=== PATIENT | male | born 1985 | race American Indian/Alaskan Native ===

== ENCOUNTER 2017-07-14 19:54 | Emergency (ER) | payer MEDICAID ==
[~2017-07-14] VITALS: Ht 172.7 cm; Wt 90.9 kg
[~2017-07-14 19:54] MED LIST: NAPR-1144 PO
[2017-07-14] MEDS ORDERED: PRED5TAB PO (20:09)
[2017-07-14] MEDS ORDERED: dexamethasone 4mg tablet PO ONE (20:25)
[2017-07-14] MEDS ORDERED: ipratropium/albuterol 3ml nebule NEB ONE (20:35)
[2017-07-14 21:01] VITALS: BP 125/62
== END 2017-07-14 21:05 | disposition home or self-care (01) ==
LOC: ER 19:54
DX: J45.901 Unspecified asthma with (acute) exacerbation (principal); F12.10 Cannabis abuse, uncomplicated; Z88.0 Allergy status to penicillin; Z79.899 Other long term (current) drug therapy
CPT/HCPCS: 93005; 94640; 94760; 99283; J8540

== ENCOUNTER 2023-05-05 10:13 | Emergency (ER) | payer MEDICAID ==
[~2023-05-05] VITALS: Ht 172.7 cm; Wt 101.0 kg
[~2023-05-05 10:13] MED LIST changes: +CYCL-1 PO; +IBUP-1986 PO; +ONDA8TAB9 PO; +PRED5TAB PO
[2023-05-05 10:55] VITALS: TEMP 98.2
[2023-05-05 11:38] LABS: BASOPHILS # (AUTO) 0.1 X10'3 (0-0.2); BASOPHILS % (AUTO) 0.8 % (0-1); EOSINOPHILS % (AUTO) 0.2 % (0-6); HEMATOCRIT 41.4 % (42.0-52.0); HEMOGLOBIN 13.2 g/dl (14.0-17.9); LYMPHOCYTES # (AUTO) 1.4 X10'3 (1.1-4.8); LYMPHOCYTES % (AUTO) 12.2 % (21-51); MEAN CORPUSCULAR HEMOGLOBIN 24.2 PG (27.0-31.0); MEAN CORPUSCULAR HGB CONC 31.8 g/dL (33.0-36.5); MEAN CORPUSCULAR VOLUME 75.9 FL (78-98); MEAN PLATELET VOLUME 7.7 FL (7.4-10.4); MONOCYTES % (AUTO) 8.8 % (2-12); PLATELET COUNT 452 X10'3 (140-440); RED BLOOD COUNT 5.45 X10'6 (4.70-6.10); RED CELL DISTRIBUTION WIDTH 15.5 % (11.5-14.5); WHITE BLOOD COUNT 11.5 X10'3 (4.5-11.0)
[2023-05-05 11:52] LABS: ALANINE AMINOTRANSFERASE 36 U/L (12-78); ALBUMIN 2.7 G/DL (3.4-5.0); ALBUMIN/GLOBULIN RATIO 0.6 (1.1-1.5); ALKALINE PHOSPHATASE 109 IU/L (46-116); ANION GAP 8 (8-16); ASPARTATE AMINO TRANSFERASE 52 U/L (10-37); BILIRUBIN,TOTAL 1.4 MG/DL (0.1-1.0); BLOOD UREA NITROGEN 17 MG/DL (7-18); BUN/CREATININE RATIO 15.5 (10.0-20.0); CALCIUM 8.5 MG/DL (8.5-10.1); CHLORIDE 106 MMOL/L (99-107); GLUCOSE 185 MG/DL (70-104); POTASSIUM 3.7 MMOL/L (3.5-5.1); SODIUM 140 MMOL/L (135-145); TOTAL CARBON DIOXIDE 25.9 MMOL/L (24-32); TOTAL PROTEIN 7.6 G/DL (6.4-8.2); eCRCL 88 ML/MIN; eGFR 75 ML/MIN
[2023-05-05 11:56] LABS: D-DIMER 3.34 MG/L FEU (0-0.50)
[2023-05-05 12:02] LABS: PRO BRAIN NATRIURETIC PEPTIDE 8769 PG/ML (0-125)
[2023-05-05] MEDS ORDERED: iohexol 350MG/ML 100ml bottle IV ONE (12:39)
[2023-05-05] MEDS ORDERED: potassium Cl 20 mEq SR tablet PO STA (13:42)
[2023-05-05] MEDS ORDERED: furosemide 10 MG/1 ML 10ml inj IV ONE (13:45)
[2023-05-05 14:01] VITALS: BP 168/118; PULSE 124; RESP 23; O2SAT 99
[2023-05-05 14:04] LABS: URINE AMPHETAMINE SCREEN POSITIVE (Neg); URINE BARBITUATE SCREEN NEGATIVE (Neg); URINE BENZODIAZEPINES SCREEN NEGATIVE (Neg); URINE CANNABINOID SCREEN POSITIVE (Neg); URINE COCAINE SCREEN NEGATIVE (Neg); URINE METHADONE SCREEN NEGATIVE (Neg); URINE OPIATE SCREEN NEGATIVE (Neg); URINE PHENCYCLIDINE SCREEN NEGATIVE (Neg)
[2023-05-06] MEDS ORDERED: MESSAGE TO NURSING PO NR (10:00)
== END 2023-05-05 14:12 | disposition left against medical advice (07) ==
LOC: ER 10:13
DX: J45.901 Unspecified asthma with (acute) exacerbation (principal); I50.9 Heart failure, unspecified; R60.0 Localized edema
CPT/HCPCS: 36415; 71045; 71275; 80053; 80305; 83880; 84145; 84484; 85025; 85379; 93005; 99285; J3490; Q9967

== ENCOUNTER 2023-10-27 11:33 | Inpatient (IN) | payer MEDICAID ==
[~2023-10-27] VITALS: Ht 172.7 cm; Wt 84.5 kg
[2023-10-27 12:15] LABS: BASOPHILS # (AUTO) 0.1 X10'3 (0-0.2); BASOPHILS % (AUTO) 0.4 % (0-1); EOSINOPHILS # (AUTO) 0.2 X10'3 (0-0.9); EOSINOPHILS % (AUTO) 0.9 % (0-6); HEMOGLOBIN 9.7 g/dl (14.0-17.9); LYMPHOCYTES % (AUTO) 6.3 % (21-51); MEAN CORPUSCULAR HEMOGLOBIN 24.9 PG (27.0-31.0); MEAN CORPUSCULAR HGB CONC 31.2 g/dL (33.0-36.5); MEAN CORPUSCULAR VOLUME 79.6 FL (78-98); MEAN PLATELET VOLUME 6.8 FL (7.4-10.4); MONOCYTES # (AUTO) 1.3 X10'3 (0-0.9); MONOCYTES % (AUTO) 8.2 % (2-12); NEUTROPHILS # (AUTO) 13.6 X10'3 (1.8-7.7); NEUTROPHILS % (AUTO) 84.2 % (42-75); PLATELET COUNT 284 X10'3 (140-440); RED BLOOD COUNT 3.89 X10'6 (4.70-6.10); RED CELL DISTRIBUTION WIDTH 19.8 % (11.5-14.5); WHITE BLOOD COUNT 16.2 X10'3 (4.5-11.0)
[2023-10-27] MEDS: LidoCAINE 2% Topical Jelly 11mL syringe (UROJET) TOP ONE (12:21)
[2023-10-27 12:36] LABS: ALANINE AMINOTRANSFERASE 8 U/L (12-78); ALBUMIN 2.5 G/DL (3.4-5.0); ALBUMIN/GLOBULIN RATIO 0.5 (1.1-1.5); ALKALINE PHOSPHATASE 150 IU/L (46-116); ANION GAP 7 (8-16); ASPARTATE AMINO TRANSFERASE 22 U/L (10-37); BILIRUBIN,TOTAL 0.9 MG/DL (0.1-1.0); BLOOD UREA NITROGEN 44 MG/DL (7-18); BUN/CREATININE RATIO 26.2 (10.0-20.0); CALCIUM 8.5 MG/DL (8.5-10.1); CHLORIDE 101 MMOL/L (99-107); CREATININE 1.68 MG/DL (0.60-1.10); GLUCOSE 218 MG/DL (70-104); POTASSIUM 4.4 MMOL/L (3.5-5.1); SODIUM 138 MMOL/L (135-145); TOTAL CARBON DIOXIDE 29.8 MMOL/L (24-32); TOTAL PROTEIN 7.9 G/DL (6.4-8.2); eCRCL 54 ML/MIN; eGFR 46 ML/MIN
[2023-10-27] MEDS: CefTRIAXone 2gm/D5W 50ml BAG 50 ML IV ONE (12:42)
[2023-10-27] MEDS: normal saline 1000ML IV soln IVB ONE (12:42)
[2023-10-27] MEDS: acetaminophen 325mg tablet PO ONE (12:44)
[2023-10-27 12:47] VITALS: PULSE 125; RESP 36; O2SAT 97
[2023-10-27 12:50] LABS: CLARITY,URINE CLOUDY (Clear); COLOR,URINE RED (Yellow)
[2023-10-27 12:56] LABS: PRO BRAIN NATRIURETIC PEPTIDE > 30000 PG/ML (0-125)
[2023-10-27 12:58] LABS: UA COLLECTION TYPE FOLEY CATH
[2023-10-27 12:59] LABS: BACTERIA,URINE FEW /HPF (Neg); RBC,URINE TNTC /HPF (0-2); SQUAMOUS EPITHELIAL CELL,UR NONE SEEN /LPF (FEW)
[2023-10-27 13:02] LABS: ANISOCYTOSIS 2+; MICROCYTOSIS 1+; PLATELET ESTIMATE NORMAL
[2023-10-27 13:03] LABS: STOMATOCYTES FEW; TEAR DROP CELLS FEW
[2023-10-27 13:04] LABS: INR 1.3 INR; PROTHROMBIN TIME 13.8 SECONDS (9.0-12.0)
[2023-10-27] MEDS: vancomycin/NS 1 GM ADD-VANTAGE 250 ML X 1 DOSE IV ONE (13:07)
[2023-10-27] MEDS: ondansetron/PF 4mg/2ml inj IV ONE (13:20)
[2023-10-27 13:37] VITALS: PULSE 124; RESP 31; O2SAT 98
[2023-10-27 13:42] LABS: ABG OXYGEN SATURATION 98.6 % (94-97); ABG PCO2 (T) 43.4 mmHg (35.0-48.0); ABG PH (T) 7.436 (7.340-7.440); ABG PO2 (T) 132.4 mmHg (75.0-100.0); ALLEN'S TEST POSITIVE; FHHb 1.4 % (0.0-5.0); FMetHb 0.3 % (0.0-1.5); FO2Hb 98.3 % (94-97); MODE MASK - BIPAP; PATIENT TEMPERATURE 39.2; PEEP 5 cm H2O; RESPIRATORY RATE 10 b/min; TOTAL HEMOGLOBIN 9.8 G/dl (14.0-17.9)
[2023-10-27] MEDS: cloNIDine 0.1 mg tablet PO ONE (14:35)
[2023-10-27] MEDS: nitroGLYCERIN 0.4mg/hour patch TD ONE (14:52)
[2023-10-27] MEDS ORDERED: DEXTROSE 15 GM of carb/4 tabs (each vial/BOTTLE has 4 tablets) PO PRN (15:35)
[2023-10-27] MEDS ORDERED: glucagon, human recombinant 1mg kit SUBCUT PRN (15:35)
[2023-10-27] MEDS ORDERED: dextrose 50%-water 50ml dispensing syringe IV PRN ×2 (15:35)
[2023-10-27] MEDS ORDERED: potassium Cl 40MEQ/1/2NS 520ml 520 ML IV PRN (15:40)
[2023-10-27] MEDS ORDERED: magnesium Cl slow-release 64mg tablet PO PRN (15:40)
[2023-10-27] MEDS ORDERED: potassium Cl 20 mEq SR tablet PO PRN ×2 (15:40)
[2023-10-27] MEDS ORDERED: ondansetron/PF 4mg/2ml inj IV PRN (15:40)
[2023-10-27] MEDS ORDERED: magnesium sulf-water 2g/50mL 50 ML IV PRN (15:40)
[2023-10-27] MEDS ORDERED: magnesium sulf-water 4G/100mL 100 ML IV PRN (15:40)
[2023-10-27] MEDS ORDERED: acetaminophen 325mg tablet PO PRN (15:40)
[2023-10-27] MEDS ORDERED: albuterol 2.5 MG/3 ML nebule NEB PRN (15:45)
[2023-10-27] MEDS ORDERED: Potassium Cl inj 20 MEQ in normal saline 1000ml 990 ML IV SCH (15:45)
[2023-10-27] MEDS: furosemide 20 MG/2 ML vial IV ONE (16:33)
[2023-10-27] MEDS: potassium Cl 20mEq in NS 1,000 ML IV SCH (16:53)
[2023-10-27] MEDS: INSULIN LISPRO 100 UNIT/ML INSULN.PEN MULTI-DOSE SQ SCH (17:00)
[2023-10-27] MEDS: DEXTROSE 15 GM of carb/4 tabs (each vial/BOTTLE has 4 tablets) PO PRN (17:30)
[2023-10-27 18:44] VITALS: PULSE 102; RESP 20
[2023-10-27] MEDS: furosemide 20 MG/2 ML vial IV SCH (20:38)
[2023-10-27] MEDS ORDERED: EMPA10TA (21:33)
[2023-10-27] MEDS ORDERED: ESCI-8 PO (21:33)
[2023-10-27] MEDS ORDERED: SACU1TAB PO (21:33)
[2023-10-27] MEDS ORDERED: ARIP5TAB31 (21:33)
[2023-10-27] MEDS ORDERED: LEVO25TA7 (21:33)
[2023-10-27] MEDS ORDERED: SPIR25TA5 (21:33)
[2023-10-27] MEDS ORDERED: GABA-530 PO (21:33)
[2023-10-27] MEDS ORDERED: LEVO750T68 PO (21:33)
[2023-10-27] MEDS ORDERED: CARV3.122 PO (21:33)
[2023-10-27] MEDS ORDERED: BUME1TAB8 PO (21:33)
[2023-10-27 22:15] VITALS: BP 158/89; PULSE 115; RESP 22; TEMP 98.4; O2SAT 92
[2023-10-27] MEDS: acetaminophen 325mg tablet PO PRN (22:40)
[2023-10-28] VITALS (10 sets, daily range): BP systolic 118–138; BP diastolic 68–87; PULSE 92–117; RESP 16–23; TEMP 97.9–98.9; O2SAT 95–98
[2023-10-28 06:08] LABS: BASOPHILS # (AUTO) 0.1 X10'3 (0-0.2); BASOPHILS % (AUTO) 0.5 % (0-1); EOSINOPHILS # (AUTO) 0.5 X10'3 (0-0.9); EOSINOPHILS % (AUTO) 4.2 % (0-6); HEMATOCRIT 27.3 % (42.0-52.0); HEMOGLOBIN 8.5 g/dl (14.0-17.9); LYMPHOCYTES # (AUTO) 1.1 X10'3 (1.1-4.8); LYMPHOCYTES % (AUTO) 9.5 % (21-51); MEAN CORPUSCULAR HEMOGLOBIN 24.9 PG (27.0-31.0); MEAN CORPUSCULAR VOLUME 80.3 FL (78-98); MEAN PLATELET VOLUME 6.7 FL (7.4-10.4); MONOCYTES # (AUTO) 1.3 X10'3 (0-0.9); MONOCYTES % (AUTO) 11.1 % (2-12); NEUTROPHILS # (AUTO) 8.6 X10'3 (1.8-7.7); NEUTROPHILS % (AUTO) 74.7 % (42-75); PLATELET COUNT 216 X10'3 (140-440); RED CELL DISTRIBUTION WIDTH 19.7 % (11.5-14.5); WHITE BLOOD COUNT 11.5 X10'3 (4.5-11.0)
[2023-10-28 06:25] LABS: ALANINE AMINOTRANSFERASE 9 U/L (12-78); ALBUMIN 2.2 G/DL (3.4-5.0); ALBUMIN/GLOBULIN RATIO 0.4 (1.1-1.5); ALKALINE PHOSPHATASE 123 IU/L (46-116); ANION GAP 5 (8-16); ASPARTATE AMINO TRANSFERASE 20 U/L (10-37); BILIRUBIN,TOTAL 0.9 MG/DL (0.1-1.0); BLOOD UREA NITROGEN 47 MG/DL (7-18); CALCIUM 8.4 MG/DL (8.5-10.1); CHLORIDE 105 MMOL/L (99-107); CREATININE 1.74 MG/DL (0.60-1.10); GLUCOSE 92 MG/DL (70-104); POTASSIUM 4.5 MMOL/L (3.5-5.1); SODIUM 142 MMOL/L (135-145); TOTAL CARBON DIOXIDE 32.4 MMOL/L (24-32); TOTAL PROTEIN 7.1 G/DL (6.4-8.2); eCRCL 56 ML/MIN; eGFR 44 ML/MIN
[2023-10-28] MEDS: levoFLOXACIN-Levaquin 500mg/D5 100 ML IV SCH (09:11)
[2023-10-28] MEDS: spironolactone 25 MG tablet PO SCH (12:05)
[2023-10-28] MEDS: carVEDilol 3.125mg tablet PO SCH (20:16)
[2023-10-28] MEDS: nicotine 21mg patch - 24 hr TD SCH (20:21)
[2023-10-28] MEDS: sacubitril/valsartan 24mg-26mg tablet PO SCH (20:26)
[2023-10-29] VITALS (10 sets, daily range): BP systolic 115–142; BP diastolic 71–96; PULSE 95–106; RESP 16–30; TEMP 97.2–98.9; O2SAT 90–99
[2023-10-29 05:40] LABS: BASOPHILS # (AUTO) 0.1 X10'3 (0-0.2); BASOPHILS % (AUTO) 0.5 % (0-1); EOSINOPHILS # (AUTO) 0.5 X10'3 (0-0.9); EOSINOPHILS % (AUTO) 4.4 % (0-6); HEMATOCRIT 27.2 % (42.0-52.0); HEMOGLOBIN 8.5 g/dl (14.0-17.9); LYMPHOCYTES % (AUTO) 8.1 % (21-51); MEAN CORPUSCULAR HGB CONC 31.3 g/dL (33.0-36.5); MEAN CORPUSCULAR VOLUME 79.9 FL (78-98); MONOCYTES # (AUTO) 1.5 X10'3 (0-0.9); MONOCYTES % (AUTO) 12.4 % (2-12); NEUTROPHILS # (AUTO) 8.7 X10'3 (1.8-7.7); NEUTROPHILS % (AUTO) 74.6 % (42-75); PLATELET COUNT 212 X10'3 (140-440); WHITE BLOOD COUNT 11.7 X10'3 (4.5-11.0)
[2023-10-29 06:01] LABS: ALANINE AMINOTRANSFERASE 10 U/L (12-78); ALBUMIN 2.2 G/DL (3.4-5.0); ALBUMIN/GLOBULIN RATIO 0.5 (1.1-1.5); ALKALINE PHOSPHATASE 162 IU/L (46-116); ANION GAP 4 (8-16); ASPARTATE AMINO TRANSFERASE 23 U/L (10-37); BILIRUBIN,TOTAL 0.7 MG/DL (0.1-1.0); BLOOD UREA NITROGEN 52 MG/DL (7-18); BUN/CREATININE RATIO 26.7 (10.0-20.0); CALCIUM 8.1 MG/DL (8.5-10.1); CHLORIDE 103 MMOL/L (99-107); CREATININE 1.95 MG/DL (0.60-1.10); GLUCOSE 135 MG/DL (70-104); POTASSIUM 4.4 MMOL/L (3.5-5.1); SODIUM 139 MMOL/L (135-145); TOTAL CARBON DIOXIDE 32.5 MMOL/L (24-32); eCRCL 50 ML/MIN; eGFR 39 ML/MIN
[2023-10-29 06:40] LABS: HEMOGLOBIN A1C 5.5 % (4.5-6.2)
[2023-10-29] MEDS: EMPAGLIFLOZIN 10 MG TABLET PO SCH (08:00)
[2023-10-29] MEDS: ESCITALOPRAM 10 mg tablet 10 MG TABLET PO SCH (09:29)
[2023-10-29] MEDS: levoTHYROXINE 25mcg tablet PO SCH (09:29)
[2023-10-29] MEDS ORDERED: FURO20TA4 PO (11:59)
[2023-10-29] MEDS ORDERED: NICO-687 TD (11:59)
[2023-10-30] VITALS (10 sets, daily range): BP systolic 115–143; BP diastolic 81–94; PULSE 71–101; RESP 16–26; TEMP 97.3–98.2; O2SAT 92–99
[2023-10-30 07:48] LABS: BASOPHILS % (AUTO) 0.4 % (0-1); EOSINOPHILS # (AUTO) 0.6 X10'3 (0-0.9); EOSINOPHILS % (AUTO) 5.9 % (0-6); HEMATOCRIT 28.5 % (42.0-52.0); LYMPHOCYTES # (AUTO) 0.9 X10'3 (1.1-4.8); LYMPHOCYTES % (AUTO) 8.9 % (21-51); MEAN CORPUSCULAR HEMOGLOBIN 25.1 PG (27.0-31.0); MEAN CORPUSCULAR HGB CONC 31.6 g/dL (33.0-36.5); MEAN CORPUSCULAR VOLUME 79.6 FL (78-98); MONOCYTES # (AUTO) 1.3 X10'3 (0-0.9); MONOCYTES % (AUTO) 12.8 % (2-12); NEUTROPHILS # (AUTO) 7.6 X10'3 (1.8-7.7); PLATELET COUNT 269 X10'3 (140-440); RED BLOOD COUNT 3.59 X10'6 (4.70-6.10); RED CELL DISTRIBUTION WIDTH 19.2 % (11.5-14.5); WHITE BLOOD COUNT 10.5 X10'3 (4.5-11.0)
[2023-10-30 07:59] LABS: ALANINE AMINOTRANSFERASE 10 U/L (12-78); ALBUMIN 2.2 G/DL (3.4-5.0); ALBUMIN/GLOBULIN RATIO 0.5 (1.1-1.5); ALKALINE PHOSPHATASE 128 IU/L (46-116); ANION GAP 3 (8-16); ASPARTATE AMINO TRANSFERASE 18 U/L (10-37); BILIRUBIN,TOTAL 0.7 MG/DL (0.1-1.0); BLOOD UREA NITROGEN 52 MG/DL (7-18); BUN/CREATININE RATIO 30.1 (10.0-20.0); CALCIUM 8.3 MG/DL (8.5-10.1); CHLORIDE 104 MMOL/L (99-107); CREATININE 1.73 MG/DL (0.60-1.10); GLUCOSE 93 MG/DL (70-104); POTASSIUM 4.2 MMOL/L (3.5-5.1); SODIUM 141 MMOL/L (135-145); TOTAL CARBON DIOXIDE 34.2 MMOL/L (24-32); TOTAL PROTEIN 6.9 G/DL (6.4-8.2); eCRCL 56 ML/MIN; eGFR 44 ML/MIN
[2023-10-30] MEDS: Melatonin 3mg tablet PO SCH (20:35)
[2023-10-30] MEDS: ibuprofen tablet 400 MG TABLET PO PRN (21:24)
[2023-10-31 02:00] VITALS: BP 131/74; PULSE 95; RESP 22; TEMP 98.1; O2SAT 95
[2023-10-31 06:00] VITALS: BP 129/95; PULSE 88; RESP 16; TEMP 97.1
[2023-10-31 08:00] VITALS: RESP 31
[2023-10-31 11:20] VITALS: PULSE 91; RESP 20; O2SAT 95
[2023-10-31 15:00] VITALS: BP 125/94; PULSE 93; RESP 33; TEMP 98.1; O2SAT 95
== END 2023-10-31 17:06 | disposition home or self-care (01) | DRG 720 ==
LOC: ER 11:33 → ED HOLD 15:43 → PCU 3S 22:11
PROVIDERS: ADMIT Internal Medicine; ATTEND Internal Medicine
PROC: 5A09357 Assistance with Respiratory Ventilation, Less than 24 Consecutive Hours, Continuous Positive Airway Pressure (ICD-10-PCS; principal; 2023-10-27)
DX: A41.9 Sepsis, unspecified organism (principal); J96.00 Acute respiratory failure, unspecified whether with hypoxia or hypercapnia; K72.90 Hepatic failure, unspecified without coma; D64.9 Anemia, unspecified; F17.210 Nicotine dependence, cigarettes, uncomplicated; Z66 Do not resuscitate; F31.9 Bipolar disorder, unspecified; I50.9 Heart failure, unspecified; J45.909 Unspecified asthma, uncomplicated; N18.30 Chronic kidney disease, stage 3 unspecified; F41.9 Anxiety disorder, unspecified; Z51.5 Encounter for palliative care; Z59.00 Homelessness unspecified; Z79.84 Long term (current) use of oral hypoglycemic drugs; Z88.0 Allergy status to penicillin; Z91.148 Patient's other noncompliance with medication regimen for other reason; Z88.8 Allergy status to other drugs, medicaments and biological substances
CPT/HCPCS: 36415; 36600; 71045; 71250; 74176; 80053; 81001; 82803; 82948; 83036; 83605; 83880; 84145; 84484; 85008; 85018; 85025; 85610; 87040; 87081; 87088; 93005; 93306; 94660; 94760; 97116; 97161; 97530; 99285; A4615; A6212; A6222; A6223; A6250; A6446; A6449; C1758; G0378; J0696; J1815; J1940; J1956; J2405; J3370; J3480; J7030; J7040

== ENCOUNTER 2023-11-09 12:31 | Inpatient (IN) | payer MEDICAID ==
[~2023-11-09] VITALS: Ht 172.7 cm; Wt 158.4 kg
[~2023-11-09 12:31] MED LIST changes: +ARIP5TAB31; +CARV3.122 PO; -CYCL-1 PO; +EMPA10TA; +ESCI-8 PO; +FURO20TA4 PO; -IBUP-1986 PO; +LEVO25TA7; -NAPR-1144 PO; +NICO-687 TD; -ONDA8TAB9 PO; -PRED5TAB PO; +SACU1TAB PO; +SPIR25TA5
[2023-11-09 13:13] LABS: HEMOGLOBIN 10.1 g/dl (14.0-17.9); WHITE BLOOD COUNT 10.8 X10'3 (4.5-11.0)
[2023-11-09 13:16] LABS: BASOPHILS # (AUTO) 0.1 X10'3 (0-0.2); BASOPHILS % (AUTO) 0.7 % (0-1); EOSINOPHILS # (AUTO) 0.4 X10'3 (0-0.9); EOSINOPHILS % (AUTO) 3.3 % (0-6); HEMATOCRIT 31.9 % (42.0-52.0); LYMPHOCYTES # (AUTO) 1.1 X10'3 (1.1-4.8); LYMPHOCYTES % (AUTO) 10.1 % (21-51); MEAN CORPUSCULAR HEMOGLOBIN 25.4 PG (27.0-31.0); MEAN CORPUSCULAR HGB CONC 31.7 g/dL (33.0-36.5); MEAN CORPUSCULAR VOLUME 80.2 FL (78-98); MEAN PLATELET VOLUME 7.1 FL (7.4-10.4); MONOCYTES # (AUTO) 1.3 X10'3 (0-0.9); NEUTROPHILS % (AUTO) 73.9 % (42-75); PLATELET COUNT 328 X10'3 (140-440); RED BLOOD COUNT 3.97 X10'6 (4.70-6.10); RED CELL DISTRIBUTION WIDTH 18.3 % (11.5-14.5)
[2023-11-09 13:30] LABS: ALBUMIN 2.7 G/DL (3.4-5.0); ANION GAP 8 (8-16); BLOOD UREA NITROGEN 56 MG/DL (7-18); BUN/CREATININE RATIO 28.4 (10.0-20.0); CHLORIDE 106 MMOL/L (99-107); CREATININE 1.97 MG/DL (0.60-1.10); GLUCOSE 144 MG/DL (70-104); MAGNESIUM 1.6 MG/DL (1.5-2.4); POTASSIUM 4.6 MMOL/L (3.5-5.1); PRO BRAIN NATRIURETIC PEPTIDE 21288 PG/ML (0-125); SODIUM 141 MMOL/L (135-145); TOTAL CARBON DIOXIDE 26.6 MMOL/L (24-32); eCRCL 49 ML/MIN; eGFR 38 ML/MIN
[2023-11-09] MEDS: normal saline 1000ML IV soln IVB ONE (13:57)
[2023-11-09] MEDS ORDERED: potassium Cl 40MEQ/1/2NS 520ml 520 ML IV PRN (16:45)
[2023-11-09] MEDS ORDERED: potassium Cl 20 mEq SR tablet PO PRN ×2 (16:45)
[2023-11-09] MEDS ORDERED: magnesium sulf-water 2g/50mL 50 ML IV PRN (16:45)
[2023-11-09] MEDS ORDERED: magnesium sulf-water 4G/100mL 100 ML IV PRN (16:45)
[2023-11-09] MEDS ORDERED: mag hydrox/Alum hydrox/simeth 30ml oral suspension PO PRN (16:45)
[2023-11-09] MEDS ORDERED: acetaminophen 325mg tablet PO PRN (16:45)
[2023-11-09] MEDS ORDERED: HYDR-3973 PO (17:24)
[2023-11-09] MEDS ORDERED: GABA-530 PO (17:24)
[2023-11-09] MEDS ORDERED: INSU100I8 SQ (17:24)
[2023-11-09] MEDS ORDERED: FURO-150 PO (17:29)
[2023-11-09] MEDS: normal saline 1000ml 1,000 ML IV SCH (18:21)
[2023-11-09] MEDS: CefTRIAXone 2gm/D5W 50ml BAG 50 ML IV ONE (18:21)
[2023-11-09] MEDS: morphine 4 MG/ML inj SYRINge IV ONE (19:46)
[2023-11-09] MEDS: ondansetron/PF 4mg/2ml inj IV PRN (19:49)
[2023-11-09] MEDS: K and/or MAG REPLACEMENT MC SCH (20:00)
[2023-11-09] MEDS: docusate sod 100mg capsule PO SCH (20:22)
[2023-11-09] MEDS: heparin, porcine 5000 units/ml vial SQ SCH (20:23)
[2023-11-09 21:00] VITALS: BP 138/106; PULSE 105
[2023-11-09 21:01] VITALS: BP 143/105; PULSE 107
[2023-11-09 21:02] VITALS: BP 141/107; PULSE 107
[2023-11-09 22:00] VITALS: BP 145/101; PULSE 106; RESP 17; TEMP 97.5; O2SAT 99
[2023-11-09 23:17] VITALS: RESP 15
[2023-11-10] MEDS: acetaminophen 325mg tablet PO PRN (04:01)
[2023-11-10] MEDS ORDERED: DEXTROSE 15 GM of carb/4 tabs (each vial/BOTTLE has 4 tablets) PO PRN (04:10)
[2023-11-10] MEDS ORDERED: dextrose 50%-water 50ml dispensing syringe IV PRN ×2 (04:10)
[2023-11-10] MEDS ORDERED: glucagon, human recombinant 1mg kit SUBCUT PRN (04:10)
[2023-11-10] MEDS: DEXTROSE 15 GM of carb/4 tabs (each vial/BOTTLE has 4 tablets) PO PRN (04:26)
[2023-11-10 05:00] VITALS: BP 126/88; PULSE 63; RESP 20; TEMP 97.8; O2SAT 94
[2023-11-10 07:47] LABS: BASOPHILS # (AUTO) 0.1 X10'3 (0-0.2); BASOPHILS % (AUTO) 0.6 % (0-1); EOSINOPHILS # (AUTO) 0.1 X10'3 (0-0.9); LYMPHOCYTES # (AUTO) 1.4 X10'3 (1.1-4.8); LYMPHOCYTES % (AUTO) 9.4 % (21-51); MEAN CORPUSCULAR HEMOGLOBIN 24.9 PG (27.0-31.0); MEAN CORPUSCULAR HGB CONC 31.3 g/dL (33.0-36.5); MEAN CORPUSCULAR VOLUME 79.5 FL (78-98); MEAN PLATELET VOLUME 7.2 FL (7.4-10.4); MONOCYTES % (AUTO) 13.8 % (2-12); NEUTROPHILS # (AUTO) 11.1 X10'3 (1.8-7.7); NEUTROPHILS % (AUTO) 75.2 % (42-75); PLATELET COUNT 316 X10'3 (140-440); RED BLOOD COUNT 4.03 X10'6 (4.70-6.10); RED CELL DISTRIBUTION WIDTH 17.9 % (11.5-14.5); WHITE BLOOD COUNT 14.7 X10'3 (4.5-11.0)
[2023-11-10 08:00] VITALS: RESP 16; O2SAT 92
[2023-11-10 08:01] LABS: ALANINE AMINOTRANSFERASE 12 U/L (12-78); ALBUMIN 2.5 G/DL (3.4-5.0); ALBUMIN/GLOBULIN RATIO 0.5 (1.1-1.5); ALKALINE PHOSPHATASE 139 IU/L (46-116); ANION GAP 12 (8-16); ASPARTATE AMINO TRANSFERASE 30 U/L (10-37); BILIRUBIN,TOTAL 0.9 MG/DL (0.1-1.0); BLOOD UREA NITROGEN 60 MG/DL (7-18); BUN/CREATININE RATIO 29.4 (10.0-20.0); CALCIUM 8.2 MG/DL (8.5-10.1); CHLORIDE 103 MMOL/L (99-107); CREATININE 2.04 MG/DL (0.60-1.10); GLUCOSE 106 MG/DL (70-104); MAGNESIUM 1.5 MG/DL (1.5-2.4); POTASSIUM 5.1 MMOL/L (3.5-5.1); SODIUM 136 MMOL/L (135-145); TOTAL CARBON DIOXIDE 20.8 MMOL/L (24-32); TOTAL PROTEIN 7.4 G/DL (6.4-8.2); eCRCL 48 ML/MIN; eGFR 37 ML/MIN
[2023-11-10] MEDS: ESCITALOPRAM 10 mg tablet 10 MG TABLET PO SCH (09:04)
[2023-11-10] MEDS: gabapentin 100mg capsule PO SCH (09:04)
[2023-11-10 10:00] VITALS: BP 111/89; PULSE 96; RESP 18; TEMP 97.7; O2SAT 94
[2023-11-10] MEDS: aripiprazole 5mg tablet PO ONE (12:11)
[2023-11-10 12:33] LABS: BILIRUBIN,URINE NEGATIVE (Neg); CLARITY,URINE CLOUDY (Clear); COLOR,URINE YELLOW (Yellow); GLUCOSE, URINE 100 mg/dl (Neg); KETONES,URINE NEGATIVE (Neg); LEUKOCYTE ESTERASE ,URINE NEGATIVE (Neg); OCCULT BLOOD,URINE LARGE (Neg); PH,URINE 5.5 (4.8-8.0); PROTEIN,URINE 100 mg/dl (Neg); UROBILINOGEN,URINE 0.2 E.U/dL (0.2-1.0)
[2023-11-10 12:37] LABS: UA COLLECTION TYPE VOIDED
[2023-11-10 12:39] LABS: NITRITES, URINE NEGATIVE (Neg)
[2023-11-10 12:41] LABS: BACTERIA,URINE FEW /HPF (Neg); MUCUS STRANDS FEW /LPF (Neg); RBC,URINE TNTC /HPF (0-2); SQUAMOUS EPITHELIAL CELL,UR NONE SEEN /LPF (FEW); WBC,URINE 0-4 /HPF (0-4)
[2023-11-10 12:42] LABS: RENAL CELLS, URINE FEW /HPF; TRANSITIONAL EPI CELLS,URINE FEW /HPF
[2023-11-10 12:43] LABS: TOTAL PROTEIN,URINE RANDOM 226.6 MG/DL
[2023-11-10 15:07] VITALS: BP_SYST 128; BP_SYST 131; BP_SYST 138; BP_DIAS 100; BP_DIAS 102; BP_DIAS 104; PULSE 94; PULSE 97; PULSE 98
[2023-11-10 18:00] VITALS: BP 130/103; PULSE 95; RESP 14; TEMP 97.9; O2SAT 94
[2023-11-10 20:00] VITALS: BP_SYST 125; BP_SYST 128; BP_SYST 135; BP_DIAS 100; BP_DIAS 101; PULSE 94; PULSE 97; PULSE 98
[2023-11-10] MEDS: carVEDilol 3.125mg tablet PO SCH (21:24)
[2023-11-10] MEDS: CefTRIAXone/D5W-Rocephin 1gm 50 ML IV ONE (21:36)
[2023-11-11 05:00] VITALS: BP 102/76; PULSE 87; RESP 19; TEMP 97.6; O2SAT 94
[2023-11-11 06:38] LABS: BASOPHILS # (AUTO) 0.1 X10'3 (0-0.2); BASOPHILS % (AUTO) 0.9 % (0-1); EOSINOPHILS # (AUTO) 0.4 X10'3 (0-0.9); EOSINOPHILS % (AUTO) 3.5 % (0-6); HEMATOCRIT 33.7 % (42.0-52.0); HEMOGLOBIN 10.8 g/dl (14.0-17.9); LYMPHOCYTES # (AUTO) 1.3 X10'3 (1.1-4.8); LYMPHOCYTES % (AUTO) 10.5 % (21-51); MEAN CORPUSCULAR HEMOGLOBIN 25.5 PG (27.0-31.0); MEAN CORPUSCULAR VOLUME 79.9 FL (78-98); MONOCYTES # (AUTO) 1.8 X10'3 (0-0.9); MONOCYTES % (AUTO) 14.7 % (2-12); NEUTROPHILS # (AUTO) 8.4 X10'3 (1.8-7.7); NEUTROPHILS % (AUTO) 70.4 % (42-75); PLATELET COUNT 335 X10'3 (140-440); RED BLOOD COUNT 4.22 X10'6 (4.70-6.10); RED CELL DISTRIBUTION WIDTH 18.1 % (11.5-14.5)
[2023-11-11 06:54] LABS: ALANINE AMINOTRANSFERASE 21 U/L (12-78); ALBUMIN 2.5 G/DL (3.4-5.0); ALBUMIN/GLOBULIN RATIO 0.5 (1.1-1.5); ALKALINE PHOSPHATASE 137 IU/L (46-116); ANION GAP 6 (8-16); ASPARTATE AMINO TRANSFERASE 44 U/L (10-37); BILIRUBIN,TOTAL 0.7 MG/DL (0.1-1.0); BLOOD UREA NITROGEN 54 MG/DL (7-18); CALCIUM 8.1 MG/DL (8.5-10.1); CHLORIDE 104 MMOL/L (99-107); CREATININE 2.08 MG/DL (0.60-1.10); GLUCOSE 137 MG/DL (70-104); MAGNESIUM 1.6 MG/DL (1.5-2.4); POTASSIUM 4.6 MMOL/L (3.5-5.1); SODIUM 134 MMOL/L (135-145); TOTAL PROTEIN 7.2 G/DL (6.4-8.2); eCRCL 47 ML/MIN; eGFR 36 ML/MIN
[2023-11-11] MEDS: CefTRIAXone/D5W-Rocephin 1gm 50 ML IV SCH (07:25)
[2023-11-11] MEDS: levoTHYROXINE 25mcg tablet PO SCH (07:26)
[2023-11-11 08:00] VITALS: RESP 18; O2SAT 94
[2023-11-11 10:00] VITALS: BP 123/93; PULSE 84; RESP 14; TEMP 97.8; O2SAT 97
[2023-11-11] MEDS: HYDROcodone/acetaminophen 10/325mg tab PO PRN (10:13)
[2023-11-11] MEDS: aripiprazole 5mg tablet PO SCH (10:14)
[2023-11-11 12:37] LABS: HIV ANTIBODY 1&2 RAPID NON-REACTIVE (Neg)
[2023-11-11 20:00] VITALS: BP_SYST 106; BP_SYST 99; BP_DIAS 67; BP_DIAS 77; PULSE 102; PULSE 70; PULSE 96
[2023-11-11] MEDS: gabapentin 100mg capsule PO SCH (20:34)
[2023-11-11 22:00] VITALS: BP 101/70; PULSE 75; RESP 13; TEMP 96.9; O2SAT 100
[2023-11-12 06:00] VITALS: BP 106/80; PULSE 72; RESP 18; TEMP 98; O2SAT 97
[2023-11-12 06:03] LABS: BASOPHILS # (AUTO) 0.1 X10'3 (0-0.2); BASOPHILS % (AUTO) 0.7 % (0-1); EOSINOPHILS # (AUTO) 0.5 X10'3 (0-0.9); HEMATOCRIT 29.7 % (42.0-52.0); HEMOGLOBIN 9.6 g/dl (14.0-17.9); LYMPHOCYTES # (AUTO) 1.1 X10'3 (1.1-4.8); LYMPHOCYTES % (AUTO) 10.7 % (21-51); MEAN CORPUSCULAR HEMOGLOBIN 25.8 PG (27.0-31.0); MEAN CORPUSCULAR HGB CONC 32.2 g/dL (33.0-36.5); MEAN CORPUSCULAR VOLUME 80.2 FL (78-98); MONOCYTES # (AUTO) 1.8 X10'3 (0-0.9); NEUTROPHILS # (AUTO) 6.5 X10'3 (1.8-7.7); NEUTROPHILS % (AUTO) 65.6 % (42-75); PLATELET COUNT 298 X10'3 (140-440); RED BLOOD COUNT 3.71 X10'6 (4.70-6.10); RED CELL DISTRIBUTION WIDTH 18.2 % (11.5-14.5); WHITE BLOOD COUNT 9.8 X10'3 (4.5-11.0)
[2023-11-12 06:33] LABS: ALANINE AMINOTRANSFERASE 20 U/L (12-78); ALBUMIN 2.4 G/DL (3.4-5.0); ALBUMIN/GLOBULIN RATIO 0.5 (1.1-1.5); ALKALINE PHOSPHATASE 141 IU/L (46-116); ANION GAP 6 (8-16); ASPARTATE AMINO TRANSFERASE 37 U/L (10-37); BILIRUBIN,TOTAL 0.5 MG/DL (0.1-1.0); BLOOD UREA NITROGEN 50 MG/DL (7-18); BUN/CREATININE RATIO 24.9 (10.0-20.0); CALCIUM 8.2 MG/DL (8.5-10.1); CHLORIDE 104 MMOL/L (99-107); CREATININE 2.01 MG/DL (0.60-1.10); GLUCOSE 116 MG/DL (70-104); MAGNESIUM 1.5 MG/DL (1.5-2.4); POTASSIUM 4.7 MMOL/L (3.5-5.1); SODIUM 133 MMOL/L (135-145); TOTAL CARBON DIOXIDE 23.1 MMOL/L (24-32); TOTAL PROTEIN 6.9 G/DL (6.4-8.2); eCRCL 48 ML/MIN; eGFR 37 ML/MIN
[2023-11-12 08:11] LABS: ANISOCYTOSIS 2+; PLATELET ESTIMATE NORMAL; TOTAL CELLS COUNTED 100
[2023-11-12 08:12] LABS: BURR CELLS FEW; ELLIPTOCYTES FEW; POLYCHROMASIA FEW; TEAR DROP CELLS FEW
[2023-11-12 10:00] VITALS: BP 106/72; PULSE 71; RESP 15; TEMP 98.3; O2SAT 93
[2023-11-12] MEDS ORDERED: CEPH500C2 PO (12:03)
[2023-11-13 09:47] LABS: COMPLEMENT C3, SERUM 94 mg/dL (82-167); COMPLEMENT C4, SERUM 15 mg/dL (12-38); HBSAG SCREEN Negative (Negative); HEPATITIS C VIRUS ANTIBODY Non Reactive (Non Reactive)
[2023-11-13 16:43] LABS: ANTINUCLEAR ANTIBODIES Negative (Negative)
== END 2023-11-12 13:37 | disposition home or self-care (01) | DRG 469 ==
LOC: ER 12:31 → UNDOADMIN 16:44 → ED HOLD 16:44 → ORTHO 4S 20:57
PROVIDERS: ADMIT Family Medicine; ATTEND Family Medicine
DX: N17.0 Acute kidney failure with tubular necrosis (principal); I42.7 Cardiomyopathy due to drug and external agent; J96.10 Chronic respiratory failure, unspecified whether with hypoxia or hypercapnia; E86.9 Volume depletion, unspecified; E11.22 Type 2 diabetes mellitus with diabetic chronic kidney disease; F12.90 Cannabis use, unspecified, uncomplicated; F15.90 Other stimulant use, unspecified, uncomplicated; F20.9 Schizophrenia, unspecified; F31.9 Bipolar disorder, unspecified; I50.22 Chronic systolic (congestive) heart failure; J44.89 Other specified chronic obstructive pulmonary disease; K21.9 Gastro-esophageal reflux disease without esophagitis; N18.9 Chronic kidney disease, unspecified; Z59.00 Homelessness unspecified; Z66 Do not resuscitate; Z79.4 Long term (current) use of insulin; Z79.84 Long term (current) use of oral hypoglycemic drugs; Z80.1 Family history of malignant neoplasm of trachea, bronchus and lung; Z87.891 Personal history of nicotine dependence; Z88.0 Allergy status to penicillin
CPT/HCPCS: 36415; 71045; 76770; 80048; 80053; 81001; 82570; 83036; 83735; 83880; 84145; 84156; 84300; 84484; 85007; 85025; 85651; 86038; 86160; 86703; 86803; 87081; 87340; 87522; 93005; 93970; 97161; 97530; 99285; A6223; A6446; A6449; G0378; J0696; J1644; J2270; J2405; J7030

== ENCOUNTER 2023-11-14 14:16 | Emergency (ER) | payer MEDICAID ==
[~2023-11-14] VITALS: Ht 172.7 cm; Wt 79.2 kg
[~2023-11-14 14:16] MED LIST changes: +CEPH500C2 PO; +FURO-150 PO; -FURO20TA4 PO; +GABA-530 PO; +HYDR-3973 PO; -NICO-687 TD; -SACU1TAB PO; -SPIR25TA5
[2023-11-14 14:18] VITALS: BP 146/99; PULSE 100; O2SAT 98
[2023-11-14 14:53] VITALS: RESP 16
[2023-11-14] MEDS: HYDROcodone/acetaminophen 10/325mg tab PO ONE (14:53)
[2023-11-14] MEDS ORDERED: HYDR-3965 PO (15:02)
[2023-11-14 15:13] VITALS: TEMP 98.1
== END 2023-11-14 15:25 | disposition home or self-care (01) ==
LOC: ER 14:16
DX: M25.512 Pain in left shoulder (principal); I50.9 Heart failure, unspecified; J45.909 Unspecified asthma, uncomplicated; F41.9 Anxiety disorder, unspecified; F31.9 Bipolar disorder, unspecified; F12.90 Cannabis use, unspecified, uncomplicated; K72.90 Hepatic failure, unspecified without coma; Z88.0 Allergy status to penicillin; Z79.899 Other long term (current) drug therapy; Z79.2 Long term (current) use of antibiotics
CPT/HCPCS: 73030; 99284; A4565

== ENCOUNTER 2023-11-23 08:56 | Emergency (ER) | payer MEDICAID ==
[~2023-11-23] VITALS: Ht 172.7 cm; Wt 81.8 kg
[~2023-11-23 08:56] MED LIST changes: +HYDR-3965 PO
[2023-11-23] MEDS ORDERED: ARIP5TAB12 PO (09:57)
[2023-11-23] MEDS ORDERED: BUME1TAB8 PO (09:59)
[2023-11-23] MEDS ORDERED: LEVO750T68 PO (09:59)
[2023-11-23 10:10] LABS: BASOPHILS % (AUTO) 0.5 % (0-1); EOSINOPHILS # (AUTO) 0.3 X10'3 (0-0.9); EOSINOPHILS % (AUTO) 3.9 % (0-6); HEMATOCRIT 29.1 % (42.0-52.0); HEMOGLOBIN 9.5 g/dl (14.0-17.9); LYMPHOCYTES # (AUTO) 0.9 X10'3 (1.1-4.8); LYMPHOCYTES % (AUTO) 9.8 % (21-51); MEAN CORPUSCULAR HEMOGLOBIN 25.1 PG (27.0-31.0); MEAN CORPUSCULAR HGB CONC 32.7 g/dL (33.0-36.5); MEAN PLATELET VOLUME 6.8 FL (7.4-10.4); MONOCYTES # (AUTO) 1.2 X10'3 (0-0.9); MONOCYTES % (AUTO) 14.2 % (2-12); NEUTROPHILS # (AUTO) 6.3 X10'3 (1.8-7.7); NEUTROPHILS % (AUTO) 71.6 % (42-75); PLATELET COUNT 229 X10'3 (140-440); RED BLOOD COUNT 3.77 X10'6 (4.70-6.10); RED CELL DISTRIBUTION WIDTH 17.3 % (11.5-14.5); WHITE BLOOD COUNT 8.8 X10'3 (4.5-11.0)
[2023-11-23 10:26] LABS: ALBUMIN 2.5 G/DL (3.4-5.0); ANION GAP 9 (8-16); BLOOD UREA NITROGEN 44 MG/DL (7-18); BUN/CREATININE RATIO 22.1 (10.0-20.0); CALCIUM 8.2 MG/DL (8.5-10.1); CHLORIDE 105 MMOL/L (99-107); CREATININE 1.99 MG/DL (0.60-1.10); GLUCOSE 119 MG/DL (70-104); POTASSIUM 3.3 MMOL/L (3.5-5.1); PRO BRAIN NATRIURETIC PEPTIDE 26406 PG/ML (0-125); SODIUM 144 MMOL/L (135-145); TOTAL CARBON DIOXIDE 30.1 MMOL/L (24-32); eCRCL 49 ML/MIN; eGFR 38 ML/MIN
[2023-11-23] MEDS ORDERED: POTA-207 PO (11:54)
[2023-11-23] MEDS ORDERED: DOXY-460 PO (11:54)
[2023-11-23 12:33] VITALS: BP 137/104; PULSE 112; RESP 20; TEMP 98; O2SAT 97
== END 2023-11-23 12:35 | disposition home or self-care (01) ==
LOC: ER 08:57
DX: I50.9 Heart failure, unspecified (principal); Z20.822 Contact with and (suspected) exposure to COVID-19; N18.9 Chronic kidney disease, unspecified; E87.6 Hypokalemia; J20.9 Acute bronchitis, unspecified; J45.909 Unspecified asthma, uncomplicated; F41.9 Anxiety disorder, unspecified; F32.A Depression, unspecified; F12.90 Cannabis use, unspecified, uncomplicated; Z88.0 Allergy status to penicillin; Z88.5 Allergy status to narcotic agent; Z79.899 Other long term (current) drug therapy; Z79.2 Long term (current) use of antibiotics
CPT/HCPCS: 36415; 71045; 80048; 82948; 83605; 83880; 84145; 85025; 86885; 86900; 86901; 87040; 87811; 99285

== ENCOUNTER 2024-04-26 15:07 | Inpatient (IN) | payer MEDICAID ==
[~2024-04-26] VITALS: Ht 172.7 cm; Wt 77.5 kg
[~2024-04-26 15:07] MED LIST changes: +ARIP5TAB12 PO; -ARIP5TAB31; +BUME1TAB8 PO; -CARV3.122 PO; -CEPH500C2 PO; -EMPA10TA; -FURO-150 PO; -HYDR-3965 PO; -HYDR-3973 PO; +LEVO750T68 PO
[2024-04-26 15:50] LABS: ABG BASE EXCESS -5.1 mmol/L (-2.0-3.0); ABG HCO3 18.6 mmol/L (21.0-28.0); ABG OXYGEN SATURATION 99.1 % (94.0-98.0); ABG PCO2 (T) 30.5 mmHg (35.0-48.0); ABG PH (T) 7.401 (7.350-7.450); ABG PO2 (T) 182.2 mmHg (83.0-108.0); ALLEN'S TEST POSITIVE; FCOHb 0.6 % (0.5-1.5); FHHb 0.9 % (0.0-5.0); FLOW 12 L/min; FMetHb 0.1 % (0.0-1.5); FO2Hb 98.4 % (94.0-98.0); MODE MASK - CPAP; PATIENT TEMPERATURE 36.8; TOTAL HEMOGLOBIN 13.9 G/dl (13.5-17.5)
[2024-04-26 15:55] LABS: BASOPHILS # (AUTO) 0.1 X10'3 (0-0.2); BASOPHILS % (AUTO) 1.2 % (0-1); EOSINOPHILS # (AUTO) 0.2 X10'3 (0-0.9); HEMATOCRIT 41.4 % (42.0-52.0); HEMOGLOBIN 13.6 g/dl (14.0-17.9); LYMPHOCYTES # (AUTO) 1.3 X10'3 (1.1-4.8); LYMPHOCYTES % (AUTO) 15.9 % (21-51); MEAN CORPUSCULAR HEMOGLOBIN 27.8 PG (27.0-31.0); MEAN CORPUSCULAR HGB CONC 32.8 g/dL (33.0-36.5); MEAN CORPUSCULAR VOLUME 84.8 FL (78-98); MEAN PLATELET VOLUME 8.2 FL (7.4-10.4); MONOCYTES # (AUTO) 0.7 X10'3 (0-0.9); NEUTROPHILS # (AUTO) 5.9 X10'3 (1.8-7.7); NEUTROPHILS % (AUTO) 72.9 % (42-75); PLATELET COUNT 294 X10'3 (140-440); RED BLOOD COUNT 4.88 X10'6 (4.70-6.10); RED CELL DISTRIBUTION WIDTH 16.1 % (11.5-14.5); WHITE BLOOD COUNT 8.2 X10'3 (4.5-11.0)
[2024-04-26 16:21] LABS: ALBUMIN 2.8 G/DL (3.4-5.0); ANION GAP 10 (8-16); BLOOD UREA NITROGEN 22 MG/DL (7-18); BUN/CREATININE RATIO 16.1 (10.0-20.0); CALCIUM 8.5 MG/DL (8.5-10.1); CHLORIDE 113 MMOL/L (99-107); CREATININE 1.37 MG/DL (0.60-1.10); GLUCOSE 124 MG/DL (70-104); MAGNESIUM 1.8 MG/DL (1.5-2.4); SODIUM 144 MMOL/L (135-145); TOTAL CARBON DIOXIDE 20.8 MMOL/L (24-32); eCRCL 71 ML/MIN; eGFR 58 ML/MIN
[2024-04-26 16:44] LABS: PRO BRAIN NATRIURETIC PEPTIDE 29674 PG/ML (0-125)
[2024-04-26] MEDS: LIDOcaine 1% W/epiNEPHrine 1:100,000 20ml vial IJ ONE (17:15)
[2024-04-26] MEDS: furosemide 10 MG/1 ML 10ml inj IV ONE (17:23)
[2024-04-26] MEDS: nitroGLYCERIN 0.4mg/hour patch TD ONE (17:23)
[2024-04-26] MEDS ORDERED: acetaminophen 325mg tablet PO PRN ×3 (19:05→19:40)
[2024-04-26] MEDS ORDERED: mag hydrox/Alum hydrox/simeth 30ml oral suspension PO PRN (19:05)
[2024-04-26] MEDS ORDERED: potassium Cl 20 mEq SR tablet PO PRN ×2 (19:05)
[2024-04-26] MEDS ORDERED: potassium Cl 40MEQ/1/2NS 520ml 520 ML IV PRN (19:05)
[2024-04-26] MEDS ORDERED: magnesium sulf-water 4G/100mL 100 ML IV PRN (19:05)
[2024-04-26] MEDS ORDERED: magnesium hydroxide 30ml (MOM) UD suspension PO PRN (19:05)
[2024-04-26] MEDS ORDERED: magnesium sulf-water 2g/50mL 50 ML IV PRN (19:05)
[2024-04-26] MEDS ORDERED: morphine 2 MG/ML inj. syringe IV PRN (19:05)
[2024-04-26] MEDS ORDERED: HYDROcodone/acetaminophen 10/325mg tab PO PRN (19:40)
[2024-04-26] MEDS ORDERED: nitroGLYCERIN 0.4mg SUBLingual tab SL PRN (19:40)
[2024-04-26] MEDS ORDERED: HYDROmorphone inj. 0.5 MG/0.5 ML DISP.SYRIN IV PRN (19:40)
[2024-04-26] MEDS ORDERED: HYDROcodone/acetaminophen 5mg/325mg tablet PO PRN (19:40)
[2024-04-26] MEDS ORDERED: metoclopramide 5 mg/ml inj IV PRN (19:40)
[2024-04-26] MEDS ORDERED: K and/or MAG REPLACEMENT MC SCH (20:00)
[2024-04-26] MEDS ORDERED: carVEDilol 12.5mg tablet PO SCH (20:00)
[2024-04-26] MEDS ORDERED: heparin, porcine 5000 units/ml vial SQ SCH (20:00)
[2024-04-26] MEDS: docusate sod 100mg capsule PO SCH (20:00)
[2024-04-26] MEDS: PERFLUTREN PROTEIN-A MICROSPHR (Optison) 0.22 MG/ML 3ML VIAL IV ONE (20:08)
[2024-04-26] MEDS: ondansetron/PF 4mg/2ml inj IV PRN (21:30)
[2024-04-26] MEDS ORDERED: furosemide 40mg/4ml inj IV SCH (22:00)
[2024-04-26 23:18] VITALS: BP 153/110; PULSE 101; RESP 16; TEMP 97.8; O2SAT 95
[2024-04-26 23:42] VITALS: O2SAT 95
[2024-04-26 23:44] VITALS: RESP 20; O2SAT 95
[2024-04-27] MEDS: HYDROmorphone/PF 0.2 MG/ML SYRINGE IV PRN (00:40)
[2024-04-27 01:59] LABS: HEMOGLOBIN A1C 5.6 % (4.5-6.2)
[2024-04-27] MEDS ORDERED: HYDROmorphone/PF 0.2 MG/ML SYRINGE IV PRN (03:20)
[2024-04-27] MEDS: HYDROmorphone inj. 0.5 MG/0.5 ML DISP.SYRIN IV PRN (03:41)
[2024-04-27 07:21] VITALS: BP 164/104; PULSE 111; RESP 23; TEMP 97.7; O2SAT 92
[2024-04-27 08:00] VITALS: RESP 22
[2024-04-27] MEDS ORDERED: spironolactone 50 MG tablet PO SCH (08:30)
[2024-04-27 18:00] VITALS: BP 127/73; PULSE 93; RESP 24; TEMP 98; O2SAT 90
[2024-04-27 20:00] VITALS: RESP 24; O2SAT 90
[2024-04-27 22:00] VITALS: BP 111/81; PULSE 94; RESP 22; TEMP 97.7; O2SAT 100
[2024-04-28 01:12] VITALS: O2SAT 100
[2024-04-28 06:00] VITALS: BP 129/95; PULSE 97; RESP 24; TEMP 98.1; O2SAT 99
[2024-04-28 08:00] VITALS: RESP 24; O2SAT 99
[2024-04-28] MEDS: LORazepam 2 mg/ml vial IV PRN ×2 (11:12→13:57)
[2024-04-28] MEDS: morphine 10mg/0.5ml (conc. morphine) oral syringe PO PRN ×2 (11:13→13:57)
[2024-04-28] MEDS: morphine 2 MG/ML inj. syringe IV PRN ×2 (12:19→13:57)
[2024-04-28] MEDS ORDERED: morphine 2 MG/ML inj. syringe IV PRN (13:45)
[2024-04-28] MEDS ORDERED: HYDROmorphone/PF 0.2 MG/ML SYRINGE IV PRN (13:45)
[2024-04-28 20:00] VITALS: RESP 16
[2024-04-28 22:31] VITALS: RESP 10
[2024-04-28 22:34] VITALS: O2SAT 53
== END 2024-04-29 00:52 | DRG 133 ==
LOC: ER 15:07 → ED HOLD 19:36 → EDBEDREQ 19:47 → SUR 3N 23:13
PROVIDERS: ADMIT Nurse Practitioner Family; ATTEND Nurse Practitioner Family
DX: J96.01 Acute respiratory failure with hypoxia (principal); I46.9 Cardiac arrest, cause unspecified; I50.23 Acute on chronic systolic (congestive) heart failure; R18.8 Other ascites; I42.7 Cardiomyopathy due to drug and external agent; Z66 Do not resuscitate; J45.909 Unspecified asthma, uncomplicated; N18.30 Chronic kidney disease, stage 3 unspecified; F31.9 Bipolar disorder, unspecified; F41.9 Anxiety disorder, unspecified; F19.10 Other psychoactive substance abuse, uncomplicated; Z51.5 Encounter for palliative care; Z99.81 Dependence on supplemental oxygen; Z88.5 Allergy status to narcotic agent; Z88.0 Allergy status to penicillin; Z79.899 Other long term (current) drug therapy
CPT/HCPCS: 36415; 36600; 71045; 80048; 82803; 82948; 83036; 83605; 83735; 83880; 84145; 84484; 85018; 85025; 87040; 87081; 87502; 87503; 93005; 96374; 99285; A6212; G0378; J1171; J1940; J2060; J2270; J2405